=== PATIENT | male | born 1960 | race Caucasian/White ===

== ENCOUNTER 2019-02-24 14:16 | Inpatient (IN) | payer BC ==
[2019-02-24 15:53] VITALS: BMI 17.9
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
[2019-02-24] MEDS ORDERED: ALBUTEROL SO4 2.5/IPRATROPIUM 0.5 INH SOL 3 ML VIAL.NEB. NEB PRN (17:04)
[2019-02-24] MEDS ORDERED: ALBUTEROL SO4 0.083% IH SOL 2.5 MG/3 ML VIAL.NEB. NEB ONE (17:30)
[2019-02-24] MEDS ORDERED: chlordiazePOXIDE HCL 10 MG CAPSULE PO PRN (17:36)
[2019-02-24] MEDS ORDERED: MAGNESIUM HYDROX 2400MG/30ML ORAL SUSPENSION 30 ML CUP PO PRN (17:40)
[2019-02-24] MEDS ORDERED: ACETAMINOPHEN 325 MG TABLET (FP) PO PRN ×2 (17:40)
[2019-02-24] MEDS ORDERED: hydrOXYzine PAMOATE 25 MG CAPSULE (FP) PO PRN (17:40)
[2019-02-24] MEDS ORDERED: NICOTINE POLACRILEX 2 MG GUM BUC PRN (17:40)
[2019-02-24] MEDS ORDERED: MENTHOL/PHENOL 1 EACH UD MM PRN (17:40)
[2019-02-24] MEDS ORDERED: BISMUTH SUBSALICYLATE 524 MG/30 ML UD PO PRN (17:40)
[2019-02-24] MEDS ORDERED: MAG HYDROX/AL HYDROX/SIMETH 30 ML UNIT-DOSE CUP PO PRN (17:40)
[2019-02-24] MEDS ORDERED: MELATONIN 5 MG TABLETS PO PRN (17:40)
[2019-02-24] MEDS ORDERED: IBUPROFEN 400 MG TABLET (FP) PO PRN (17:40)
[2019-02-24] MEDS ORDERED: MAGNESIUM CITRATE 300 ML BOTTLE PO PRN (17:40)
[2019-02-24] MEDS ORDERED: chlordiazePOXIDE HCL 25 MG CAPSULE PO ONE (18:15)
[2019-02-24] MEDS: NICOTINE 21 MG/24 HOURS TOPICAL PATCH TD SCH (18:24)
[2019-02-24] MEDS: guaiFENesin 200 MG/10 ML 10 ML UNIT-DOSE CUPS PO SCH ×2 (18:24→23:39)
[2019-02-24] MEDS: cloNIDine HCL 0.1 MG TABLET PO PRN (18:37)
[2019-02-24] MEDS: ALBUTEROL SO4 0.083% IH SOL 2.5 MG/3 ML VIAL.NEB. NEB SCH (21:30)
[2019-02-24] MEDS: THIAMINE HCL 100 MG TABLET (FP) PO SCH (21:31)
[2019-02-24] MEDS: chlordiazePOXIDE HCL 25 MG CAPSULE PO SCH (21:31)
[2019-02-25] MEDS: guaiFENesin 200 MG/10 ML 10 ML UNIT-DOSE CUPS PO SCH ×4 (06:41→23:54)
[2019-02-25] MEDS: chlordiazePOXIDE HCL 25 MG CAPSULE PO SCH ×3 (06:41→21:30)
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
--- NOTE | 2019-02-25 08:20 | PN ---
Teaching Attending Note Name of Resident: Lyn Marie ATTENDING PHYSICIAN STATEMENT I saw and evaluated the patient. I reviewed the resident's note and discussed the case with the resident. I agree with the resident's findings and plan as documented. SUBJECTIVE: Agree with resident's subjective findings. OBJECTIVE: Agree with resident's objective findings. ASSESSMENT AND PLAN: Agree with admission criteria and plans.
--- NOTE | 2019-02-25 09:14 | EKG ---
Test Reason : Blood Pressure : / mmHG Vent. Rate : 101 BPM Atrial Rate : 101 BPM P-R Int : 150 ms QRS Dur : 096 ms QT Int : 372 ms P-R-T Axes : 097 125 121 degrees QTc Int : 482 ms SUSPECT ARM LEAD REVERSAL, INTERPRETATION ASSUMES NO REVERSAL SINUS TACHYCARDIA BIATRIAL ENLARGEMENT LATERAL INFARCT , AGE UNDETERMINED ABNORMAL ECG NO PREVIOUS ECGS AVAILABLE Confirmed by MD Guanako, Sid ([id number]) on 02/25/2019 9:14:21 AM Referred By: Confirmed By:Sid Mujica MD
[2019-02-25 09:38] LABS: EPI CELLS 1.2 /HPF (0-5/HPF); HYALINE CASTS 4 /lpf (0-8); URINE APPEARANCE CLEAR; URINE BACTERIA 2.9 /hpf (NEGATIVE); URINE BILIRUBIN NEGATIVE (NEGATIVE); URINE COLOR YELLOW; URINE GLUCOSE (UA) NEGATIVE (NEGATIVE); URINE KETONE NEGATIVE (NEGATIVE); URINE LEUK ESTERASE NEGATIVE (NEGATIVE); URINE NITRITE NEGATIVE (NEGATIVE); URINE PROTEIN 1+ (NEGATIVE); URINE RBC 3 /hpf (0-4); URINE UROBILINOGEN 0.2 mg/dL (0.2-1.0); URINE WBC 4 /hpf (0-5)
[2019-02-25 09:40] LABS: HEMATOCRIT 43.9 % (35.4-49); HEMOGLOBIN 14.9 GM/dL (11.7-16.9); MCH 31.4 pg (25.7-33.7); MCHC 33.9 g/dl (32.0-35.9); MEAN CELL VOLUME 92.5 fl (80-96); MEAN PLT VOLUME 7.8 fl (7.5-11.1); PLATELET COUNT 247 K/MM3 (134-434); RBC 4.75 M/mm3 (4.00-5.60); RDW 14.3 % (11.9-15.9); WHITE BLOOD COUNT 15.7 K/mm3 (4.0-10.0)
[2019-02-25 09:43] LABS: ALBUMIN 3.5 g/dl (3.4-5.0); BILIRUBIN,TOTAL 0.4 mg/dL (0.2-1); BLOOD UREA NITROGEN 12.9 mg/dL (7-18); CALCIUM 9.4 mg/dL (8.5-10.1); CREATININE 0.9 mg/dL (0.55-1.3); POTASSIUM 3.7 mmol/L (3.5-5.1); TOT PROT 6.9 g/dl (6.4-8.2)
[2019-02-25] MEDS ORDERED: MELATONIN 5 MG TABLETS PO PRN (09:43)
[2019-02-25] MEDS: PRENATAL VITAMINS W/ FOLIC ACID TABLET (FP) PO SCH (10:49)
[2019-02-25] MEDS: ALBUTEROL SO4 0.083% IH SOL 2.5 MG/3 ML VIAL.NEB. NEB SCH ×4 (10:49→20:15)
[2019-02-25] MEDS: NICOTINE 21 MG/24 HOURS TOPICAL PATCH TD SCH (10:49)
[2019-02-25] MEDS ORDERED: ALBUTEROL SO4 8 GM HFA INHALER IH PRN (13:13)
--- NOTE | 2019-02-25 13:24 | PN ---
S CIWA - CIWA Score Nausea/Vomitin Muscle Tremors: 2 Anxiety: 2 Agitation: 2 Paroxysmal Sweats: 1-Minimal Palms Moist Orientation: 0-Oriented Tacttile Disturbances: 1-Very Mild Itch/Numbness Auditory Disturbances: 0-None Visual Disturbances: 0-None Headache: 1-Very Mild CIWA-Ar Total Score: 11 S Progress Note (SOAP) Subjective: alert,irritable,anxious,interrupted sleep,pain in the body,coughing Objective: 02/25/19 13:20 Vital Signs Temperature 97.5 F L 02/25/19 09:28 Pulse Rate 106 H 02/25/19 09:28 Respiratory Rate 18 02/25/19 09:28 Blood Pressure 118/70 02/25/19 09:28 O2 Sat by Pulse Oximetry (%) Laboratory Last Values WBC 15.7 K/mm3 (4.0-10.0) H 02/25/19 08:00 RBC 4.75 M/mm3 (4.00-5.60) 02/25/19 08:00 Hgb 14.9 GM/dL (11.7-16.9) 02/25/19 08:00 Hct 43.9 % (35.4-49) 02/25/19 08:00 MCV 92.5 fl (80-96) 02/25/19 08:00 MCH 31.4 pg (25.7-33.7) 02/25/19 08:00 MCHC 33.9 g/dl (32.0-35.9) 02/25/19 08:00 RDW 14.3 % (11.9-15.9) 02/25/19 08:00 Plt Count 247 K/MM3 (134-434) 02/25/19 08:00 MPV 7.8 fl (7.5-11.1) 02/25/19 08:00 Sodium 141 mmol/L (136-145) 02/25/19 08:00 Potassium 3.7 mmol/L (3.5-5.1) 02/25/19 08:00 Chloride 108 mmol/L (98-107) H 02/25/19 08:00 Carbon Dioxide 27 mmol/L (21-32) 02/25/19 08:00 Anion Gap 6 MMOL/L (8-16) L 02/25/19 08:00 BUN 12.9 mg/dL (7-18) 02/25/19 08:00 Creatinine 0.9 mg/dL (0.55-1.3) 02/25/19 08:00 Est GFR (CKD-EPI)AfAm 110.27 02/25/19 08:00 Est GFR (CKD-EPI)NonAf 95.14 02/25/19 08:00 Random Glucose 99 mg/dL (74-106) 02/25/19 08:00 Calcium 9.4 mg/dL (8.5-10.1) 02/25/19 08:00 Total Bilirubin 0.4 mg/dL (0.2-1) 02/25/19 08:00 AST 30 U/L (15-37) 02/25/19 08:00 ALT 36 U/L (13-61) 02/25/19 08:00 Alkaline Phosphatase 72 U/L (45-117) 02/25/19 08:00 Total Protein 6.9 g/dl (6.4-8.2) 02/25/19 08:00 Albumin 3.5 g/dl (3.4-5.0) 02/25/19 08:00 Urine Color Yellow 02/25/19 08:00 Urine Appearance Clear 02/25/19 08:00 Urine pH 5.0 (5.0-8.0) 02/25/19 08:00 Ur Specific [place] 1.020 (1.010-1.035) 02/25/19 08:00 Urine Protein 1+ (NEGATIVE) H 02/25/19 08:00 Urine Glucose (UA) Negative (NEGATIVE) 02/25/19 08:00 Urine Ketones Negative (NEGATIVE) 02/25/19 08:00 Urine Blood Trace (NEGATIVE) 02/25/19 08:00 Urine Nitrite Negative (NEGATIVE) 02/25/19 08:00 Urine Bilirubin Negative (NEGATIVE) 02/25/19 08:00 Urine Urobilinogen 0.2 mg/dL (0.2-1.0) 02/25/19 08:00 Ur Leukocyte Esterase Negative (NEGATIVE) 02/25/19 08:00 Urine WBC (Auto) 4 /hpf (0-5) 02/25/19 08:00 Urine RBC (Auto) 3 /hpf (0-4) 02/25/19 08:00 Urine Casts (Auto) 4 /lpf (0-8) 02/25/19 08:00 U Epithel Cells (Auto) 1.2 /HPF (0-5/HPF) 02/25/19 08:00 Urine Bacteria (Auto) 2.9 /hpf (NEGATIVE) 02/25/19 08:00 02/25/19 13:21 rpr pending Assessment: 02/25/19 13:22 withdrawal symptom Plan: continue detox librium regimens,zithromax 500 mgs po now then 250 mgs po daily for 3 days for bronchitis, albuterol in haler,on pred nosone 20 mg po daily
[2019-02-25] MEDS ORDERED: AZITHROMYCIN 250 MG TABLET PO ONE (14:00)
[2019-02-25] MEDS: predniSONE 20 MG TABLET (UD) PO SCH (18:00)
[2019-02-25] MEDS: THIAMINE HCL 100 MG TABLET (FP) PO SCH (21:29)
[2019-02-26] MEDS: guaiFENesin 200 MG/10 ML 10 ML UNIT-DOSE CUPS PO SCH ×2 (06:08→12:13)
[2019-02-26] MEDS: chlordiazePOXIDE 5 MG CAPSULE PO SCH ×3 (06:08→22:41)
[2019-02-26] MEDS: ALBUTEROL SO4 0.083% IH SOL 2.5 MG/3 ML VIAL.NEB. NEB SCH ×4 (08:14→20:43)
[2019-02-26] MEDS: PRENATAL VITAMINS W/ FOLIC ACID TABLET (FP) PO SCH (10:03)
[2019-02-26] MEDS: predniSONE 20 MG TABLET (UD) PO SCH (10:04)
[2019-02-26] MEDS: AZITHROMYCIN 250 MG TABLET PO SCH (10:04)
[2019-02-26] MEDS: NICOTINE 21 MG/24 HOURS TOPICAL PATCH TD SCH (10:05)
[2019-02-26] MEDS: cloNIDine HCL 0.1 MG TABLET PO PRN (10:08)
--- NOTE | 2019-02-26 10:39 | EKG ---
Test Reason : Blood Pressure : / mmHG Vent. Rate : 101 BPM Atrial Rate : 101 BPM P-R Int : 114 ms QRS Dur : 098 ms QT Int : 350 ms P-R-T Axes : 080 045 042 degrees QTc Int : 453 ms SINUS TACHYCARDIA BIATRIAL ENLARGEMENT PULMONARY DISEASE PATTERN NONSPECIFIC ST ABNORMALITY ABNORMAL ECG WHEN COMPARED WITH ECG OF 24-FEB-2019 18:59, QRS AXIS SHIFTED LEFT CRITERIA FOR LATERAL INFARCT ARE NO LONGER PRESENT Confirmed by ALLIE HUDSON, WILL ([id number]) on 02/26/2019 10:39:24 AM Referred By: Confirmed By:WILL KELLEY MD
--- NOTE | 2019-02-26 14:24 | PN ---
S CIWA - CIWA Score Nausea/Vomitin-Mild Nausea/No Vomiting Muscle Tremors: 1-None Visible, but [place] Anxiety: 2 Agitation: 2 Paroxysmal Sweats: 1-Minimal Palms Moist Orientation: 0-Oriented Tacttile Disturbances: 1-Very Mild Itch/Numbness Auditory Disturbances: 0-None Visual Disturbances: 0-None Headache: 1-Very Mild CIWA-Ar Total Score: 9 BHS Progress Note (SOAP) Subjective: alert,irritable,anxious,interrupted sleep,pain in the body, Objective: 02/26/19 14:22 Vital Signs Temperature 97.3 F L 02/26/19 13:22 Pulse Rate 97 H 02/26/19 13:22 Respiratory Rate 18 02/26/19 13:22 Blood Pressure 122/92 02/26/19 13:22 O2 Sat by Pulse Oximetry (%) Laboratory Last Values WBC 15.7 K/mm3 (4.0-10.0) H 02/25/19 08:00 RBC 4.75 M/mm3 (4.00-5.60) 02/25/19 08:00 Hgb 14.9 GM/dL (11.7-16.9) 02/25/19 08:00 Hct 43.9 % (35.4-49) 02/25/19 08:00 MCV 92.5 fl (80-96) 02/25/19 08:00 MCH 31.4 pg (25.7-33.7) 02/25/19 08:00 MCHC 33.9 g/dl (32.0-35.9) 02/25/19 08:00 RDW 14.3 % (11.9-15.9) 02/25/19 08:00 Plt Count 247 K/MM3 (134-434) 02/25/19 08:00 MPV 7.8 fl (7.5-11.1) 02/25/19 08:00 Sodium 141 mmol/L (136-145) 02/25/19 08:00 Potassium 3.7 mmol/L (3.5-5.1) 02/25/19 08:00 Chloride 108 mmol/L (98-107) H 02/25/19 08:00 Carbon Dioxide 27 mmol/L (21-32) 02/25/19 08:00 Anion Gap 6 MMOL/L (8-16) L 02/25/19 08:00 BUN 12.9 mg/dL (7-18) 02/25/19 08:00 Creatinine 0.9 mg/dL (0.55-1.3) 02/25/19 08:00 Est GFR (CKD-EPI)AfAm 110.27 02/25/19 08:00 Est GFR (CKD-EPI)NonAf 95.14 02/25/19 08:00 Random Glucose 99 mg/dL (74-106) 02/25/19 08:00 Calcium 9.4 mg/dL (8.5-10.1) 02/25/19 08:00 Total Bilirubin 0.4 mg/dL (0.2-1) 02/25/19 08:00 AST 30 U/L (15-37) 02/25/19 08:00 ALT 36 U/L (13-61) 02/25/19 08:00 Alkaline Phosphatase 72 U/L (45-117) 02/25/19 08:00 Total Protein 6.9 g/dl (6.4-8.2) 02/25/19 08:00 Albumin 3.5 g/dl (3.4-5.0) 02/25/19 08:00 Urine Color Yellow 02/25/19 08:00 Urine Appearance Clear 02/25/19 08:00 Urine pH 5.0 (5.0-8.0) 02/25/19 08:00 Ur Specific [place] 1.020 (1.010-1.035) 02/25/19 08:00 Urine Protein 1+ (NEGATIVE) H 02/25/19 08:00 Urine Glucose (UA) Negative (NEGATIVE) 02/25/19 08:00 Urine Ketones Negative (NEGATIVE) 02/25/19 08:00 Urine Blood Trace (NEGATIVE) 02/25/19 08:00 Urine Nitrite Negative (NEGATIVE) 02/25/19 08:00 Urine Bilirubin Negative (NEGATIVE) 02/25/19 08:00 Urine Urobilinogen 0.2 mg/dL (0.2-1.0) 02/25/19 08:00 Ur Leukocyte Esterase Negative (NEGATIVE) 02/25/19 08:00 Urine WBC (Auto) 4 /hpf (0-5) 02/25/19 08:00 Urine RBC (Auto) 3 /hpf (0-4) 02/25/19 08:00 Urine Casts (Auto) 4 /lpf (0-8) 02/25/19 08:00 U Epithel Cells (Auto) 1.2 /HPF (0-5/HPF) 02/25/19 08:00 Urine Bacteria (Auto) 2.9 /hpf (NEGATIVE) 02/25/19 08:00 RPR Titer Nonreactive (NONREACTIVE) 02/25/19 08:00 Assessment: 02/26/19 14:22 withdrawal symptom Plan: continue detox lirium regimen,chest x ray today,on zithromax for acute bronchitis
--- NOTE | 2019-02-26 21:25 | PN ---
[facility] Progress Note Note: Pt. assessed on the unit s/p unwitnessed fall. Pt. reported he fell asleep on a chair after watching TV. He denied hitting his head or sustaining any injuries. Pt. is alert and oriented x 3; self-directing. Full ROM noted. He denied pain or discomfort; no bruises noted. Afterwards, service writer advisor reviewed the video camera of the client falling with security ; pt. seemingly did not hit his head. Plan: fall protocol 2 initiated. Reinforced fall precautions
[2019-02-26] MEDS: THIAMINE HCL 100 MG TABLET (FP) PO SCH (22:42)
[2019-02-27] MEDS ORDERED: chlordiazePOXIDE HCL 10 MG CAPSULE PO PRN
[2019-02-27] MEDS: chlordiazePOXIDE HCL 10 MG CAPSULE PO SCH ×3 (05:38→20:58)
[2019-02-27] MEDS: ALBUTEROL SO4 0.083% IH SOL 2.5 MG/3 ML VIAL.NEB. NEB SCH ×4 (08:29→20:52)
[2019-02-27] MEDS: PRENATAL VITAMINS W/ FOLIC ACID TABLET (FP) PO SCH (10:47)
[2019-02-27] MEDS: predniSONE 20 MG TABLET (UD) PO SCH (10:48)
[2019-02-27] MEDS: AZITHROMYCIN 250 MG TABLET PO SCH (10:48)
[2019-02-27] MEDS: NICOTINE 21 MG/24 HOURS TOPICAL PATCH TD SCH (10:49)
[2019-02-27] MEDS ORDERED: LIDOCAINE 5% TOPICAL PATCH TP ONE (11:18)
[2019-02-27] MEDS ORDERED: IBUPROFEN 400 MG TABLET (FP) PO PRN (11:18)
--- NOTE | 2019-02-27 11:33 | PN ---
S CIWA - CIWA Score Nausea/Vomitin-No Nausea/No Vomiting Muscle Tremors: 2 Anxiety: 1-Mildly Anxious Agitation: 0-Normal Activity Paroxysmal Sweats: No Perspiration Orientation: 0-Oriented Tacttile Disturbances: 0-None Auditory Disturbances: 0-None Visual Disturbances: 0-None Headache: 0-None Present CIWA-Ar Total Score: 3 BHS Progress Note (SOAP) Subjective: knee pain sweats Objective: 02/27/19 11:32 Vital Signs Temperature 97.0 F L 02/27/19 10:25 Pulse Rate 91 H 02/27/19 10:25 Respiratory Rate 18 02/27/19 10:25 Blood Pressure 119/67 02/27/19 10:25 O2 Sat by Pulse Oximetry (%) aaox3 ambulating no acute distress Assessment: 02/27/19 11:32 mild withdrawals Plan: continue detox cane ordered for ambulating motrin 800mg tid prn tyelnol prn roboxin prn lidocaine patch d/c in am
[2019-02-27] MEDS: METHOCARBAMOL 500 MG TABLET PO PRN (12:18)
[2019-02-27] MEDS: guaiFENesin 600 MG TABLET.ER (FP) PO SCH ×2 (12:18→21:00)
[2019-02-27] MEDS ORDERED: LIDOCAINE PATCH REMOVAL MC SCH (22:00)
[2019-02-27] MEDS: THIAMINE HCL 100 MG TABLET (FP) PO SCH (22:26)
[2019-02-28] MEDS: METHOCARBAMOL 500 MG TABLET PO PRN (00:52)
[2019-02-28] MEDS ORDERED: chlordiazePOXIDE HCL 10 MG CAPSULE PO ONE (05:00)
--- NOTE | 2019-02-28 08:47 | DS ---
[facility] Detox Discharge Summary Admission Date: 02/24/19 Discharge Date: 02/28/19 - History Present History: Alcohol Dependence, Cannabis Dependence, Opioid Dependence - Physical Exam Results Vital Signs: Vital Signs Temperature 98.1 F 02/27/19 21:21 Pulse Rate 84 02/27/19 21:21 Respiratory Rate 18 02/27/19 21:21 Blood Pressure 114/82 02/27/19 21:21 O2 Sat by Pulse Oximetry (%) 91 L 02/27/19 08:59 Pertinent Admission Physical Exam Findings: pt arrived in withdrawals Vital Signs Temperature 98.1 F 02/27/19 21:21 Pulse Rate 84 02/27/19 21:21 Respiratory Rate 18 02/27/19 21:21 Blood Pressure 114/82 02/27/19 21:21 O2 Sat by Pulse Oximetry (%) 91 L 02/27/19 08:59 Laboratory Tests 02/25/19 02/25/19 02/25/19 08:00 08:00 08:00 WBC 15.7 H RBC 4.75 Hgb 14.9 Hct 43.9 MCV 92.5 MCH 31.4 MCHC 33.9 RDW 14.3 Plt Count 247 MPV 7.8 Sodium 141 Potassium 3.7 Chloride 108 H Carbon Dioxide 27 Anion Gap 6 L BUN 12.9 Creatinine 0.9 Est GFR (CKD-EPI)AfAm 110.27 Est GFR (CKD-EPI)NonAf 95.14 Random Glucose 99 Calcium 9.4 Total Bilirubin 0.4 AST 30 ALT 36 Alkaline Phosphatase 72 Total Protein 6.9 Albumin 3.5 Urine Color Urine Appearance Urine pH Ur Specific [place] Urine Protein Urine Glucose (UA) Urine Ketones Urine Blood Urine Nitrite Urine Bilirubin Urine Urobilinogen Ur Leukocyte Esterase Urine WBC (Auto) Urine RBC (Auto) Urine Casts (Auto) U Epithel Cells (Auto) Urine Bacteria (Auto) RPR Titer Nonreactive 02/25/19 08:00 WBC RBC Hgb Hct MCV MCH MCHC RDW Plt Count MPV Sodium Potassium Chloride Carbon Dioxide Anion Gap BUN Creatinine Est GFR (CKD-EPI)AfAm Est GFR (CKD-EPI)NonAf Random Glucose Calcium Total Bilirubin AST ALT Alkaline Phosphatase Total Protein Albumin Urine Color Yellow Urine Appearance Clear Urine pH 5.0 Ur Specific [place] 1.020 Urine Protein 1+ H Urine Glucose (UA) Negative Urine Ketones Negative Urine Blood Trace Urine Nitrite Negative Urine Bilirubin Negative Urine Urobilinogen 0.2 Ur Leukocyte Esterase Negative Urine WBC (Auto) 4 Urine RBC (Auto) 3 Urine Casts (Auto) 4 U Epithel Cells (Auto) 1.2 Urine Bacteria (Auto) 2.9 RPR Titer today pt is aaox3 ambulating no acute distress no s/s of withdrawals - Treatment Hospital Course: Detox Protocol Followed, Detoxed Safely, Responded well, Discharged Condition Good, Rehab Referral Accepted Patient has Accepted a Rehab Referral to: pt referred to inpatient rehab - Medication Discharge Medications: Ambulatory Orders Albuterol Sulfate Inhaler - [Ventolin Hfa Inhaler -] 1 - 2 inh PO PRN PRN Prednisone [Deltasone] 20 mg PO DAILY 02/24/19 - Diagnosis (1) Acute bronchitis Current Visit: Yes Status: Acute (2) Alcohol dependence, uncomplicated Current Visit: Yes Status: Acute (3) Asthma Current Visit: Yes Status: Acute Qualifiers: Asthma severity: mild Asthma complication type: unspecified (4) Cannabis dependence Current Visit: Yes Status: Chronic (5) Heroin withdrawal Current Visit: Yes Status: Acute (6) Opioid dependence Current Visit: Yes Status: Chronic Qualifiers: Substance use status: uncomplicated Qualified Code(s): F11.20 - Opioid dependence, uncomplicated (7) Substance induced mood disorder Current Visit: Yes Status: Acute (8) Substance-induced sleep disorder Current Visit: Yes Status: Acute (9) Back pain Current Visit: Yes Status: Chronic Qualifiers: Back pain location: low back pain (10) Knee pain, left Current Visit: Yes Status: Chronic (11) Nicotine dependence Current Visit: Yes Status: Chronic Qualifiers: Nicotine product type: cigarettes Substance use status: uncomplicated Qualified Code(s): F17.210 - Nicotine dependence, cigarettes, uncomplicated (12) PTSD (post-traumatic stress disorder) Current Visit: Yes Status: Chronic - AMA Did Patient Leave Against Medical Advice: No
[2019-02-28] MEDS: predniSONE 20 MG TABLET (UD) PO SCH (09:15)
[2019-02-28] MEDS: PRENATAL VITAMINS W/ FOLIC ACID TABLET (FP) PO SCH (09:15)
[2019-02-28] MEDS: guaiFENesin 600 MG TABLET.ER (FP) PO SCH (09:15)
[2019-02-28] MEDS: NICOTINE 21 MG/24 HOURS TOPICAL PATCH TD SCH (09:16)
[2019-02-28] MEDS: AZITHROMYCIN 250 MG TABLET PO SCH (09:16)
[2019-02-28 09:51] VITALS: BP 126/70; PULSE 92; TEMP 97.5
[2019-02-28] MEDS ORDERED: LIDOCAINE 5% TOPICAL PATCH TP SCH (10:00)
== END 2019-02-28 12:29 | disposition home or self-care (01) | DRG 773 ==
LOC: YASAS 14:16 → Y6N 17:08
PROVIDERS: ADMIT Allergy & Immunology; ATTEND Allergy & Immunology
PROC: HZ2ZZZZ Detoxification Services for Substance Abuse Treatment (ICD-10-PCS; principal; 2019-02-24)
DX: F11.23 Opioid dependence with withdrawal (principal); F10.230 Alcohol dependence with withdrawal, uncomplicated; F12.20 Cannabis dependence, uncomplicated; F19.20 Other psychoactive substance dependence, uncomplicated; F17.210 Nicotine dependence, cigarettes, uncomplicated; F19.282 Other psychoactive substance dependence with psychoactive substance-induced sleep disorder; F19.24 Other psychoactive substance dependence with psychoactive substance-induced mood disorder; F43.10 Post-traumatic stress disorder, unspecified; F32.9 Major depressive disorder, single episode, unspecified; J20.9 Acute bronchitis, unspecified; J45.909 Unspecified asthma, uncomplicated; M54.5 Low back pain; M25.562 Pain in left knee; G89.29 Other chronic pain; Z91.5 Personal history of self-harm; Z88.0 Allergy status to penicillin
CPT/HCPCS: 36415; 71046-TC-FY; 80053; 81003; 85027; 86593; 93005; 93010; 94640; J0735

== ENCOUNTER 2024-12-16 14:32 | Inpatient (IN) | payer OTHER ==
[2024-12-16 15:57] VITALS: BMI 18.8
[2024-12-16] MEDS ORDERED: LOPERAMIDE HCL 2 MG CAPSULE PO PRN (16:34)
[2024-12-16] MEDS ORDERED: BENZONATATE 200 MG CAPSULE PO PRN (16:34)
[2024-12-16] MEDS ORDERED: MAGNESIUM HYDROX 2400MG/30ML ORAL SUSPENSION 30 ML CUP PO PRN (16:34)
[2024-12-16] MEDS ORDERED: NICOTINE POLACRILEX 2 MG GUM BUC PRN (16:34)
[2024-12-16] MEDS ORDERED: P-EPHED 60MG/TRIPROLIDI 2.5MG TABLET PO PRN (16:34)
[2024-12-16] MEDS ORDERED: NICOTINE POLACRILEX 2 MG LOZENGE BC PRN (16:34)
[2024-12-16] MEDS ORDERED: NALOXONE (NARCAN) HCL 4 MG/0.1 ML SPRAY NS PRN (16:34)
[2024-12-16] MEDS ORDERED: POLYETHYLENE GLYCOL (HEALTHYLAX) 3350 17 GM PACKET PO PRN (16:34)
[2024-12-16] MEDS ORDERED: hydrOXYzine PAMOATE 25 MG CAPSULE (FP) PO PRN (16:34)
[2024-12-16] MEDS ORDERED: BENZOCAINE/MENTHOL (CHLORASEPTIC ) LOZENGE MM PRN (16:34)
[2024-12-16] MEDS ORDERED: guaiFENesin 600 MG TABLET.ER (FP) PO PRN (16:34)
[2024-12-16] MEDS: TUBERCULIN PPD 5 TU/0.1ML SYRINGE (IN PATIENT USE ONLY) ID ONE (21:09)
[2024-12-16] MEDS: BACITRACIN 0.9 GM PACKET TP SCH (22:45)
[2024-12-16] MEDS: MELATONIN 5 MG TABLETS PO SCH (22:46)
[2024-12-16] MEDS: ATORVASTATIN CA 40 MG TABLET (FP) PO SCH (22:46)
[2024-12-16] MEDS: THIAMINE 100 MG TABLET PO SCH (22:46)
[2024-12-17] MEDS: amLODIPine BESYLATE 10 MG TABLET (FP) PO SCH (09:32)
[2024-12-17] MEDS: ASPIRIN 81 MG CHEWABLE TABLETS PO SCH (09:32)
[2024-12-17] MEDS: PRENATAL VITAMINS W/ FOLIC ACID TABLET (FP) PO SCH (09:32)
[2024-12-17] MEDS: ESCITALOPRAM OXALATE 20 MG TABLET PO SCH (10:44)
[2024-12-17 10:52] LABS: MCHC 30.3 g/dl (32.3-36.5); MEAN CELL VOLUME 93.0 fl (79.0-92.2); MEAN PLT VOLUME 9.5 fl (9.4-12.4); RDW 15.1 % (12.2-16.4)
[2024-12-17 12:21] LABS: GLUCOSE,RANDOM 109 mg/dL (74-106); TOT PROT 6.5 g/dl (6.4-8.2)
[2024-12-17 12:23] LABS: ALK PHOS 76 U/L (40-150)
[2024-12-17 12:27] LABS: CREATININE 0.84 mg/dL (0.55-1.3); SGOT/AST 26 U/L (5-34); SGPT/ALT 27 U/L (0-55)
[2024-12-17 12:42] LABS: CO2 21 mmol/L (21-32)
[2024-12-17 12:47] LABS: URINE APPEARANCE CLEAR; URINE BILIRUBIN NEGATIVE (NEGATIVE); URINE COLOR YELLOW; URINE GLUCOSE (UA) NEGATIVE (NEGATIVE); URINE KETONE NEGATIVE (NEGATIVE); URINE LEUK ESTERASE NEGATIVE (NEGATIVE); URINE NITRITE NEGATIVE (NEGATIVE); URINE PROTEIN NEGATIVE (NEGATIVE); URINE UROBILINOGEN 0.2 mg/dL (0.2-1.0)
[2024-12-17] MEDS: GABAPENTIN 400 MG CAPSULE PO SCH (13:13)
[2024-12-17 15:03] LABS: SYPHILIS W/ RPR CONF NON-REACTIVE (NONREACTIVE)
[2024-12-17] MEDS: ALBUTEROL SO4 HFA INHALER IH PRN (17:44)
[2024-12-17 18:25] LABS: HCV DIAGNOSTIC IN-HOUSE W/RFLX NON-REACTIVE (NONREACTIVE)
[2024-12-18] MEDS: ASPIRIN 325 MG ENTERIC COATED TABLET (FP) PO SCH (10:00)
[2024-12-18] MEDS: ACETAMINOPHEN 325 MG TABLET (FP) PO PRN (12:53)
[2024-12-19] MEDS ORDERED: BACITRACIN 0.9 GM PACKET TP PRN (10:25)
[2024-12-20] MEDS: IBUPROFEN 600 MG TABLET (FP) PO PRN (09:44)
[2024-12-20] MEDS: IBUPROFEN 400 MG TABLET (FP) PO PRN (13:35)
[2024-12-25] MEDS: amLODIPine BESYLATE 10 MG TABLET (FP) PO SCH (15:01)
[2024-12-31] MEDS: NALTREXONE HCL 50 MG TABLET PO ONE (14:09)
[2025-01-01] MEDS: NALTREXONE HCL 50 MG TABLET PO SCH (09:39)
[2025-01-11] MEDS: MAG HYDROX/AL HYDROX/SIMETH 30 ML UNIT-DOSE CUP PO PRN (11:24)
[2025-01-12] MEDS: NALTREXONE MICROSPHERES (VIVITROL) 380 MG DISP.SYRIN IM ONE (10:55)
[2025-01-13 08:41] VITALS: BP 94/79; PULSE 90; RESP 16; TEMP 97.5
== END 2025-01-13 09:12 | disposition home or self-care (01) | DRG 772 ==
LOC: YASAS 14:32 → Y3NR 20:30 → Y3E 12-17 10:24
PROVIDERS: ADMIT Neuromusculoskeletal Medicine & OMM; ATTEND Psychiatry & Neurology Pain Medicine
PROC: HZ42ZZZ Group Counseling for Substance Abuse Treatment, Cognitive-Behavioral (ICD-10-PCS; principal; 2024-12-16)
DX: F10.20 Alcohol dependence, uncomplicated (principal); F14.20 Cocaine dependence, uncomplicated; F17.210 Nicotine dependence, cigarettes, uncomplicated; F19.282 Other psychoactive substance dependence with psychoactive substance-induced sleep disorder; F19.24 Other psychoactive substance dependence with psychoactive substance-induced mood disorder; F32.9 Major depressive disorder, single episode, unspecified; F41.9 Anxiety disorder, unspecified; F43.10 Post-traumatic stress disorder, unspecified; I25.10 Atherosclerotic heart disease of native coronary artery without angina pectoris; I10 Essential (primary) hypertension; I95.9 Hypotension, unspecified; I73.9 Peripheral vascular disease, unspecified; J44.9 Chronic obstructive pulmonary disease, unspecified; Z95.5 Presence of coronary angioplasty implant and graft; Z95.828 Presence of other vascular implants and grafts; Z59.02 Unsheltered homelessness; Z88.0 Allergy status to penicillin
CPT/HCPCS: 36415; 80053; 80307; 81003; 85027; 86780; 86803; 93005; 93010; J2315